=== PATIENT | female | born 1980 | race Caucasian/White ===

== ENCOUNTER 2017-07-05 09:09 | Outpatient (CLI) | payer MEDICAID ==
[~2017-07-05] VITALS: Ht 152.4 cm; Wt 80.0 kg
[2017-07-05 09:39] VITALS: BP 110/59; PULSE 89
[2017-07-05] MEDS ORDERED: PRENAT PO (09:40)
[2017-07-05] MEDS ORDERED: TERBUTALINE 1 MG/ML INJ SC ONE (10:30)
--- NOTE | 2017-07-05 11:11 | RADRPT ---
PROCEDURE: US OB biophysical profile. CLINICAL INDICATION: decreased movements, labor pain TECHNIQUE: Multiple sonographic images of the pelvis were obtained. The images were reviewed on a PACS workstation. COMPARISON: No prior studies are available for comparison. FINDINGS: There is a single viable intrauterine gestation. Cardiac activity is present with 144 beats per min randi. There is a vertex presentation. The placenta is posterior. There is no evidence of placental abruption. There is a normal amount of amniotic fluid with an CHAD = 9.9 cm. Biophysical profile: movement 2/2 tone 2/2. breathing 2/2 CHAD 2/2 Total 06/28 RPTAT: AA . IMPRESSION: Normal biophysical profile. . .Kenrick Wood MD, MD Date Time Electronically viewed and signed by .Kenrick Wood MD, MD on 07/05/2017 11:11 .S/
--- NOTE | 2017-07-05 12:32 | PN ---
Triage Information Date/Time Reason for visit: Uterine contractions Weeks of Gestation 37 week /Para Diabetes: none Hypertention: none Objective Vital Signs Date Time Temp Pulse Resp B/P Pulse Ox O2 Delivery O2 Flow Rate FiO2 07/05/17 09:39 98.0 89 110/59 Heart Rate: 130's Contractions: >10 Minutes Apart Exam Patient complaining of low back pain mild contraction pelvic exam by nursing staff cervix long and closed vertex at -2 station labor instructions given advised return to the hospital when contraction stronger and closer together return to the hospital otherwise follow with the clinic Disposition: Discharge ELINA YANEZ MD Jul 05, 2017 12:32
--- NOTE | 2017-07-05 13:04 | TRIAGE ---
OB Triage Datetime Report Generated by CPN: 07/05/2017 13:04 Datetime: 07/05/2017 12:21 Stage of : OB Triage Datetime: 07/05/2017 12:18 Labor Evaluation Frequency: OCCAS Monitor Mode: External Duration (sec)2399: 50-60 Quality: Mild Pattern: Normal: <= 5 Contractions in 10 Minutes Resting Tone [place]: Relaxed Heart Rate FHR Baseline Rate: 145 Monitor Mode: External US Variability: Moderate 6-25 bpm Accelerations: 10X10 Decelerations: None Category: Category I Pain Assessment Pain Scale: 3 Pain Presence: Intermittent Pain Type: Cramping Pain Location: Abdomen Pain Goal: 3 Pain Relief Measures: Comfort Measures Datetime: 07/05/2017 11:28 Labor Evaluation Frequency: 0 Monitor Mode: External Pattern: Normal: <= 5 Contractions in 10 Minutes Resting Tone [place]: Relaxed Heart Rate FHR Baseline Rate: 135 Monitor Mode: External US Variability: Moderate 6-25 bpm Accelerations: 10X10 Decelerations: None Category: Category I Pain Assessment Pain Scale: 4 Pain Presence: Intermittent Pain Type: Cramping Pain Location: Abdomen Pain Goal: 3 Pain Relief Measures: Comfort Measures Datetime: 07/05/2017 10:33 Labor Evaluation Frequency: 3-5 Monitor Mode: External Duration (sec)2399: 50-70 Quality: Mild Pattern: Normal: <= 5 Contractions in 10 Minutes Resting Tone [place]: Relaxed Heart Rate FHR Baseline Rate: 145 Monitor Mode: External US Variability: Moderate 6-25 bpm Accelerations: 10X10 Decelerations: None Category: Category I Pain Assessment Pain Scale: 9 Pain Presence: Intermittent Pain Type: Cramping Pain Location: Abdomen Pain Goal: 3 Pain Relief Measures: Comfort Measures Datetime: 07/05/2017 09:52 Stage of : OB Triage Datetime: 07/05/2017 09:33 Stage of : OB Triage Assessment Type: Triage Maternal Assessment Level of Consciousness: Fully Conscious DTR's/Clonus: DTRs 2+; No Clonus Headache: Denies Blurred Vision: No Respiratory Effort: Unlabored; Regular Rhythm; Equal Expansion Breath Sounds, Left: Clear and Equal Breath Sounds, Right: Clear and Equal Nausea/Vomiting: Denies RUQ Epigastric Pain: Denies Facial Edema: None Temperature Route: Axillary Fall Risk Assessment History of Falling: (0) No Secondary Diagnosis: (0) No Ambulatory Aid: (0) Bedrest/Nurse Assist IV Therapy: (0) No Gait: (0) Normal/Bedrest/Immobile Mental Status: (0) Oriented to Own Ability Fall Score: 0 Fall Risk Score Definition: No Risk: No action required Labor Evaluation Frequency: 0 Monitor Mode: External Pattern: Normal: <= 5 Contractions in 10 Minutes Resting Tone [place]: Relaxed Heart Rate FHR Baseline Rate: 160 Monitor Mode: External US Variability: Moderate 6-25 bpm Accelerations: 10X10 Decelerations: None Category: Category I Pain Assessment Pain Scale: 9 Pain Presence: Intermittent Pain Type: Cramping; Contraction Pain Location: Abdomen Pain Goal: 3 Pain Relief Measures: Comfort Measures Vaginal Exam Dilatation (cms): 0.0 Effacement (%): 0 Station: -2 Exam By: Lou SAXENA Membrane Status: Intact Datetime: 07/05/2017 09:32 Time of Arrival: 07/05/2017 09:05 EGA: 37.0 Arrived By: Ambulatory Arrived From: Home Chief Complaint: C/O UC'S Q 20, DENIES LEAKING OR BLEEDING Movement: Present Contractions: Irregular Contractions: 20-30 Rupture of Membranes: Denies Vaginal Bleeding: None Vaginal Discharge: Denies Recent Sexual Intercouse: Denies Abdominal Trauma: Not Applicable Patient Complaints: Contractions; Cramping Time Provider Notified: 07/05/2017 09:52 Provider Notified: RENATA Initial Plan: MONITOR, VE, PO HYDRATION, TERB X1, BPP
== END 2017-07-05 12:55 | disposition home or self-care (01) ==
LOC: OBT 09:09 → L-D 09:10 → OBT 12:55
PROVIDERS: ATTEND Obstetrics & Gynecology
DX: O62.9 Abnormality of forces of labor, unspecified (principal); Z3A.37 37 weeks gestation of pregnancy
CPT/HCPCS: 76818; J3105; Z7500; G0463

== ENCOUNTER 2017-07-12 13:26 | Outpatient (CLI) | payer MEDICAID ==
[~2017-07-12] VITALS: Ht 149.9 cm; Wt 81.5 kg
[~2017-07-12 13:26] MED LIST: PRENAT PO
[2017-07-12 13:40] VITALS: Ht 149.9 cm; Wt 81.5 kg
[2017-07-12 13:41] VITALS: BP 110/55; PULSE 80; RESP 18
[2017-07-12] MEDS ORDERED: LACTATED RINGER'S 1,000 ML IV SCH (14:14)
[2017-07-12] MEDS ORDERED: TERBUTALINE 1 MG/ML INJ SC PRN (14:30)
--- NOTE | 2017-07-12 16:21 | PN ---
Triage Information Date/Time Reason for visit: Uterine contractions Weeks of Gestation 38 weeks 6 day /Para Diabetes: none Hypertention: none Objective Vital Signs Date Time Temp Pulse Resp B/P Pulse Ox O2 Delivery O2 Flow Rate FiO2 07/12/17 13:41 97.8 80 18 110/55 Room Air Heart Rate: 130's Contractions: >10 Minutes Apart Exam After receiving 500 cc of an IV infusion contractions stopped heart rate category1, ultrasound to check mindy if within normal discharge patient to the care of her physician ,she has an appointment to see her doctor tomorrow Results/Medications Medications Current Medications Lactated Ringer's (Lr) 1,000 ml @ 0 mls/hr Q0M IV Last administered on t 14:39; Admin Dose 1,200 MLS/HR; Start 07/12/17 at 14:14 Terbutaline Sulfate (Brethine) 0.25 mg ONCE PRN SC FOR CONTRACTIONS; Start 07/12 at 14:30 Disposition: Discharge ELINA YANEZ MD Jul 12, 2017 16:21
--- NOTE | 2017-07-12 16:47 | RADRPT ---
PROCEDURE: US OB. CLINICAL INDICATION: Contractions TECHNIQUE: Transabdominal views of the pelvis are available for review. COMPARISON: Obstetrical ultrasound from 07/05/2017 FINDINGS: There is a single intrauterine gestation in a vertex position. The heart rate is present at 129 bpm. The placenta is posterior. There is no evidence of placenta previa or a placental abruption. The CHAD measures 11.6 cm. RPTAT: EE IMPRESSION: Normal CHAD of 11.6 cm, compared with an CHAD of 9.9 cm on 07/05/2017. Physician Unique Date Time Electronically viewed and signed by Physician Unique on 07/12/2017 16:47 RA/
--- NOTE | 2017-07-12 16:53 | TRIAGE ---
OB Triage Datetime Report Generated by CPN: 07/12/2017 16:53 Datetime: 07/12/2017 16:40 Stage of : OB Triage Datetime: 07/12/2017 16:25 Stage of : OB Triage Datetime: 07/12/2017 16:00 Maternal Assessment Level of Consciousness: Fully Conscious Headache: Denies Blurred Vision: No Nausea/Vomiting: Denies RUQ Epigastric Pain: Denies Facial Edema: None Labor Evaluation Frequency: 4-15 Monitor Mode: External Duration (sec)2399: 50-90 Quality: Mild Pattern: Normal: <= 5 Contractions in 10 Minutes Resting Tone [place]: Relaxed Heart Rate FHR Baseline Rate: 130 Monitor Mode: External US FHR Baseline Changes: No Baseline Change Variability: Moderate 6-25 bpm Accelerations: 15X15 Decelerations: None Category: Category I Pain Assessment Pain Scale: 0 Pain Presence: None/Denies Pain Type: N/A Datetime: 07/12/2017 15:14 Maternal Assessment Level of Consciousness: Fully Conscious Headache: Denies Blurred Vision: No Nausea/Vomiting: Denies RUQ Epigastric Pain: Denies Facial Edema: None Labor Evaluation Frequency: 7-15 Monitor Mode: External Duration (sec)2399: 60-90 Quality: Mild Pattern: Normal: <= 5 Contractions in 10 Minutes Resting Tone [place]: Relaxed Heart Rate FHR Baseline Rate: 130 Monitor Mode: External US FHR Baseline Changes: No Baseline Change Variability: Moderate 6-25 bpm Accelerations: 15X15 Decelerations: None Category: Category I Pain Assessment Pain Scale: 0 Pain Presence: None/Denies Pain Type: N/A Datetime: 07/12/2017 14:44 Maternal Assessment Level of Consciousness: Fully Conscious Headache: Denies Blurred Vision: No Nausea/Vomiting: Denies RUQ Epigastric Pain: Denies Facial Edema: None Labor Evaluation Frequency: 8-16 Monitor Mode: External Duration (sec)2399: 60-90 Quality: Mild Pattern: Normal: <= 5 Contractions in 10 Minutes Resting Tone [place]: Relaxed Heart Rate FHR Baseline Rate: 135 Monitor Mode: External US FHR Baseline Changes: No Baseline Change Variability: Moderate 6-25 bpm Accelerations: 15X15 Decelerations: None Category: Category I Pain Assessment Pain Scale: 0 Pain Presence: None/Denies Pain Type: N/A Datetime: 07/12/2017 14:34 Contraction Comments: PT REPORTS THAT SHE HAS NOT FELT ANY CONTRACTIONS SINCE ARRIVING AT HOSPITAL Pain Assessment Pain Scale: 0 Pain Presence: None/Denies Pain Type: N/A Datetime: 07/12/2017 13:47 Vaginal Exam Dilatation (cms): 0.0 Effacement (%): 50 Station: -3 Exam By: siri rnc Vaginal Bleeding: None Cervix, Consistency: Firm Cervix, Position: Posterior Presentation 'A': Unable to Assess Datetime: 07/12/2017 13:45 Stage of : OB Triage Maternal Assessment Level of Consciousness: Fully Conscious DTR's/Clonus: DTRs 2+; No Clonus Headache: Denies Blurred Vision: No Respiratory Effort: Unlabored; Regular Rhythm; Equal Expansion Breath Sounds, Left: Clear and Equal Breath Sounds, Right: Clear and Equal Nausea/Vomiting: Denies RUQ Epigastric Pain: Denies Lower Extremities Edema: Bilateral Lower Extremities Degree: 1+ Upper Extremities Edema: None Degree: None Facial Edema: None Temperature Route: Axillary Fall Risk Assessment History of Falling: (0) No Secondary Diagnosis: (0) No Ambulatory Aid: (0) Bedrest/Nurse Assist IV Therapy: (0) No Gait: (0) Normal/Bedrest/Immobile Mental Status: (0) Oriented to Own Ability Fall Score: 0 Fall Risk Score Definition: No Risk: No action required Monitor Mode: External Heart Rate FHR Baseline Rate: 145 Monitor Mode: External US Pain Assessment Pain Scale: 4 Pain Presence: Intermittent Pain Type: Cramping Pain Location: Abdomen Datetime: 07/12/2017 13:43 Time of Arrival: 07/12/2017 13:20 EGA: 38.6 Arrived By: Ambulatory Arrived From: Home Chief Complaint: contractions Movement: Present Contractions: Irregular Time Contractions Began: 07/12/2017 07:00 Contractions: 10 Rupture of Membranes: Denies Vaginal Bleeding: None Vaginal Discharge: Denies Recent Sexual Intercouse: Denies Abdominal Trauma: Not Applicable Patient Complaints: Contractions Additional Patient Complaints: presented to triage c/o feeling contractions since 0700 denies prob wesley with , denies bleeding and or leaking of water, plan of care explained to pt., pvu Time Provider Notified: 07/12/2017 14:09 Provider Notified: DR. YANEZ Initial Plan: sve/ efm Datetime: 07/05/2017 09:33 Fall Score: 0 Fall Risk Score Definition: No Risk: No action required Datetime: 07/05/2017 09:32 EGA: 37.6
== END 2017-07-12 17:00 | disposition home or self-care (01) ==
LOC: OBT 13:26 → L-D 13:26 → OBT 17:00
PROVIDERS: ATTEND Obstetrics & Gynecology
DX: O62.9 Abnormality of forces of labor, unspecified (principal); Z3A.38 38 weeks gestation of pregnancy
CPT/HCPCS: 76815; 96360; Z7500; G0463

== ENCOUNTER 2017-07-22 23:17 | Inpatient (IN) | payer MEDICAID ==
[~2017-07-22] VITALS: Ht 149.9 cm; Wt 82.1 kg
[2017-07-23] VITALS: BP 104/62; PULSE 69; RESP 18
[2017-07-23] MEDS ORDERED: LACTATED RINGER'S 1,000 ML IV SCH (00:01)
--- NOTE | 2017-07-23 00:03 | TRIAGE ---
OB Triage Datetime Report Generated by CPN: 07/23/2017 00:03 Datetime: 07/22/2017 23:57 Time of Arrival: 07/22/2017 23:15 EGA: 39.3 Arrived By: Wheelchair Arrived From: Home Chief Complaint: ucs Movement: Present Contractions: Regular Time Contractions Began: 07/22/2017 15:00 Rupture of Membranes: Denies Vaginal Bleeding: Normal Show Vaginal Discharge: Denies Recent Sexual Intercouse: Denies Abdominal Trauma: Not Applicable Patient Complaints: Contractions Time Provider Notified: 07/22/2017 23:55 Provider Notified: Dr Dc Initial Plan: efm, sve Datetime: 07/22/2017 23:52 Dilatation (cms): 5.0 Datetime: 07/22/2017 23:51 Stage of : OB Triage Datetime: 07/22/2017 23:34 Stage of : OB Triage Level of Consciousness: Fully Conscious Headache: Denies Blurred Vision: No Nausea/Vomiting: Denies RUQ Epigastric Pain: Denies Facial Edema: None Frequency: placed Monitor Mode: External Resting Tone [place]: Relaxed FHR Baseline Rate: 140 Monitor Mode: External US Dilatation (cms): 5.0 Effacement (%): 80 Station: -2 Exam By: Deborah Loving Membrane Status: Intact Vaginal Bleeding: Normal Show Cervix, Consistency: Soft Cervix, Position: Midposition Presentation 'A': Cephalic Datetime: 07/22/2017 08:50 Fall Score: 0 Fall Risk Score Definition: No Risk: No action required Datetime: 07/22/2017 08:45 EGA: 39.3
[2017-07-23] MEDS ORDERED: LIDOCAINE 1% (MPF) 30 ML INJ INJ PRN (00:30)
[2017-07-23] MEDS ORDERED: IBUPROFEN 600 MG TAB PO PRN (00:30)
[2017-07-23] MEDS ORDERED: OXYTOCIN 30 UNITS/LR 500 ML IV PRN ×2 (00:30→04:30)
[2017-07-23] MEDS ORDERED: OXYTOCIN 30 UNITS/LR 500 ML IV SCH ×2 (00:30)
[2017-07-23] MEDS ORDERED: CARBOPROST 250 MCG INJ IM PRN ×2 (00:30→04:30)
[2017-07-23] MEDS ORDERED: MISOPROSTOL 200 MCG TAB PR PRN ×2 (00:30→04:30)
[2017-07-23] MEDS ORDERED: MINERAL OIL LIGHT 10 ML VIAL TOP ONE (00:30)
[2017-07-23] MEDS ORDERED: METHYLERGONOVINE 0.2 MG INJ IM PRN ×2 (00:30→04:30)
[2017-07-23] MEDS ORDERED: BUTORPHANOL 2 MG INJ IV PRN (00:30)
[2017-07-23] MEDS ORDERED: LACTATED RINGER'S 1,000 ML IV PRN (01:00)
[2017-07-23 01:55] LABS: BASOPHILS % 0.3 % (0.0-2.0); EOSINOPHILS # 0.1 10^3/ul (0.0-0.5); EOSINOPHILS % 0.6 % (0.0-7.0); HEMATOCRIT 40.4 % (37.0-47.0); LYMPHOCYTES # 2.7 10^3/ul (0.8-2.9); LYMPHOCYTES % 22.1 % (15.0-51.0); MEAN CORPUSCULAR HEMOGLOBIN 30.4 pg (29.0-33.0); MEAN CORPUSCULAR HGB CONC 34.7 g/dl (32.0-37.0); MEAN CORPUSCULAR VOLUME 87.8 fl (82.0-101.0); MEAN PLATELET VOLUME 9.8 fl (7.4-10.4); MONOCYTE # 0.8 10^3/ul (0.3-0.9); MONOCYTES % 6.5 % (0.0-11.0); NEUTROPHILS % 70.1 % (39.0-77.0); PLATELET COUNT 240 10^3/UL (140-415); RED CELL DISTRIBUTION WIDTH 13.8 % (11.5-14.5); WHITE BLOOD COUNT 12.4 10^3/ul (4.8-10.8)
[2017-07-23 02:12] LABS: INR 0.89; PARTIAL THROMBOPLASTIN TIME 29.2 Sec (25.0-35.0); PT RATIO 0.9
--- NOTE | 2017-07-23 02:59 | LDN ---
Date/Time of Note Date/Time of Note DATE: 07/23/17 TIME: 02:55 Delivery Summary normal vaginal delivery Weeks of Gestation 40w3d Placenta Delivered: Spontaneously Meconium: none Episiotomy: No Perineal laceration: 2 Laceration repair: 00ch gut Anesthesia type: Local Estimated blood loss: 300 Sponge & Needle done & correct: Yes All needle counts correct: Yes Any foreign bodies felt in the: No Problems: Delivery Information Sex Sex: female Apgars 1 Minute: 9 5 Minute: 10 Suctioning Nose & mouth suctioned at amber: Yes Delee suction performed: No Umbilical Cord Umbilical cord with: 3 Vessels Cord presentations: no nuchal cord Cord Blood was obtained: Yes Mother & Baby Disposition Disposition Mom & Baby to Maternity; Good: Yes Mom transferred to: Other Baby to NICU: No () ALLEN FAULKNER MD Jul 23, 2017 02:59
--- NOTE | 2017-07-23 03:08 | HP ---
Date/Time of Note Date/Time of Note DATE: 07/23/17 TIME: 03:00 OB - History Hx of Present Free Text/Dictation 36 y.o at 39w4d in active labor with intact membrane VE 5cm /80%/_2 GBS neg admitted for expectant management Chief Complaint: uterine contractions Estimated Due Date: Jul 26, 2017 : 3 Para: 2 Spontaneous : 0 Therapeutic : 0 Care: Good Care Ultrasounds: Normal mid trimester US Obstetrical Complications: None Medical Complications: None Past Family/Social History * Past Medical, Surgical, Family and Obstetric Histories reviewed from chart. Blood Type: O+ Rubella: immune RPR/VDRL: Negative GBS Status: Negative HBsAG: Negative OB Admission Exam Vital Signs Vital Signs Vital Signs Date Time Temp Pulse Resp B/P Pulse Ox O2 Delivery O2 Flow Rate FiO2 07/23/17 00:00 98.0 69 18 104/62 Room Air Physical Exam HEENT: WNL Heart: Rhythm Normal Lungs: Clear, Equal Abdomen: WNL Extremities: Normal Reflexes: Normal Cervical Dilatation: 5cm Effacement: 75% Station: -2 Membranes: Intact Amniotic Fluid: Unevaluable Heart Rate: 140's Accelerations: Accelerations Present Decelerations: No Decelerations Varibility: Moderate Contractions on Admission: < 5 Minutes Apart Intensity: Moderate Last 72 hours Lab Results CBC & BMP 07/23/17 01:10 OB Assessment/Plan Reason for admission: active labor Other Assessment: IUP 39w4d Plan: Expectant Management ALLEN FAULKNER MD Jul 23, 2017 03:08
[2017-07-23] MEDS ORDERED: BENZOCAINE 20% 56 ML SPRAY TOP PRN (04:30)
[2017-07-23] MEDS ORDERED: OXYCODONE/ASPIRIN (4.88/325) TAB PO PRN ×2 (04:30)
[2017-07-23] MEDS ORDERED: ZOLPIDEM 5 MG TAB PO PRN (04:30)
[2017-07-23] MEDS ORDERED: WITCH HAZEL/GLYCERIN PAD PR PRN (04:30)
[2017-07-23] MEDS ORDERED: LANOLIN 7 GM TUBE TOP PRN (04:30)
[2017-07-23 05:30] VITALS: BP 102/59; PULSE 60; RESP 17
[2017-07-23] MEDS: IBUPROFEN 600 MG TAB PO SCH ×4 (05:57→23:47)
[2017-07-23 08:15] VITALS: BP 103/57; PULSE 61; RESP 16
[2017-07-23] MEDS: SENNA/DOCUSATE NA (8.6MG/50MG) TAB PO SCH ×2 (09:30→20:49)
[2017-07-23 12:26] VITALS: BP 99/52; PULSE 56; RESP 14
[2017-07-23 16:30] VITALS: BP 82/47; PULSE 61; RESP 16
[2017-07-23 20:15] VITALS: BP 89/52; PULSE 66; RESP 19
[2017-07-24] VITALS: BP 84/58; PULSE 62; RESP 17
[2017-07-24 03:45] VITALS: BP 95/56; PULSE 53; RESP 18
[2017-07-24] MEDS: IBUPROFEN 600 MG TAB PO SCH ×3 (05:33→18:28)
[2017-07-24 08:00] VITALS: BP 90/54; PULSE 54; RESP 16
[2017-07-24 08:19] LABS: BASOPHIL # 0.1 10^3/ul (0.0-0.1); BASOPHILS % 0.6 % (0.0-2.0); EOSINOPHILS # 0.2 10^3/ul (0.0-0.5); EOSINOPHILS % 1.4 % (0.0-7.0); HEMATOCRIT 35.5 % (37.0-47.0); HEMOGLOBIN 11.9 g/dl (12.0-16.0); LYMPHOCYTES # 2.3 10^3/ul (0.8-2.9); LYMPHOCYTES % 22.1 % (15.0-51.0); MEAN CORPUSCULAR HEMOGLOBIN 30.2 pg (29.0-33.0); MEAN CORPUSCULAR HGB CONC 33.5 g/dl (32.0-37.0); MEAN CORPUSCULAR VOLUME 90.1 fl (82.0-101.0); MEAN PLATELET VOLUME 9.4 fl (7.4-10.4); MONOCYTE # 0.6 10^3/ul (0.3-0.9); NEUTROPHILS % 69.4 % (39.0-77.0); PLATELET COUNT 194 10^3/UL (140-415); RED BLOOD COUNT 3.94 10^6/ul (4.20-5.40); RED CELL DISTRIBUTION WIDTH 13.8 % (11.5-14.5); WHITE BLOOD COUNT 10.5 10^3/ul (4.8-10.8)
[2017-07-24] MEDS: SENNA/DOCUSATE NA (8.6MG/50MG) TAB PO SCH ×2 (08:48→21:39)
--- NOTE | 2017-07-24 10:22 | PN ---
Date/Time of Note Date/Time of Note DATE: 07/24/17 TIME: 10:19 OB Subjective Subjective Subjective Post normal vaginal delivery day 1 ,Afebrile vital signs are stable abdomen soft uterus firm lochia normal extremity normal ELINA YANEZ MD Jul 24, 2017 10:22
[2017-07-24 15:59] VITALS: BP 93/52; PULSE 60; RESP 18
[2017-07-24 19:30] VITALS: BP 119/74; PULSE 80; RESP 18
[2017-07-25] MEDS: IBUPROFEN 600 MG TAB PO SCH ×3 (00:11→13:11)
[2017-07-25 04:00] VITALS: BP 99/53; PULSE 61; RESP 18
[2017-07-25 08:20] VITALS: BP 105/62; PULSE 75; RESP 18
[2017-07-25] MEDS ORDERED: DIPHTH/TET/ACEL PERTUSS (ADULT) 0.5 ML VIAL IM* ONE (09:00)
[2017-07-25] MEDS: SENNA/DOCUSATE NA (8.6MG/50MG) TAB PO SCH (10:14)
--- NOTE | 2017-07-25 12:57 | DS ---
Date/Time of Note Date/Time of Note DATE: 07/25/17 TIME: 12:55 Discharge Summary Admission/Discharge Info Admit Date/Time Jul 23, 2017 at 00:07 Discharge Date/Time July 25, 2017 at 1250 Discharge Diagnosis Post normal vaginal delivery day 2 Patient Condition: Good Procedures Normal vaginal delivery Hx of Present Illness Term Hospital Course Satisfactory recovery uneventful Home Meds Reported Medications Multivit/Min/Fol Ac/Iron/Pren* ( S*) 1 Tab Tab, 1 TAB PO DAILY, TAB 07/05/17 Follow-up Plan instructions given recommended patient to make appointment to be seen at the clinic in 2 weeks Primary Care Provider Care Physician No Primary Time spent on discharge: < 30 minutes ELINA YANEZ MD Jul 25, 2017 12:57
== END 2017-07-25 14:00 | disposition home or self-care (01) | DRG 775 ==
LOC: OBT 23:17 → L-D 23:17 → OBT 07-23 00:05 → L-D 07-23 00:07 → PP1 07-23 05:04
PROVIDERS: ADMIT Obstetrics & Gynecology; ATTEND Obstetrics & Gynecology
PROC: 10E0XZZ Delivery of Products of Conception, External Approach (ICD-10-PCS; principal; 2017-07-23)
PROC: 0KQM0ZZ Repair Perineum Muscle, Open Approach (ICD-10-PCS; 2017-07-23)
DX: O70.1 Second degree perineal laceration during delivery (principal); Z37.0 Single live birth; Z3A.39 39 weeks gestation of pregnancy
CPT/HCPCS: 85025; 85610; 85730; 86592; 86900; 86901; 87340; 90715; G0463; J2590; J7120